=== PATIENT | male | born 1985 | race Caucasian/White ===

== ENCOUNTER 2016-11-10 20:55 | Emergency (ER) | payer SELFPAY ==
[~2016-11-10] VITALS: Ht 172.7 cm; Wt 56.0 kg
[2016-11-10 21:05] VITALS: BP 128/79; PULSE 70; RESP 16; TEMP 97.9; O2SAT 99
[2016-11-10] MEDS ORDERED: IBUP800T23 PO (21:14)
--- NOTE | 2016-11-10 21:15 | PD ---
HPI . Right wrist injury Chief Complaint: Injury Time Seen by Provider: 21:08 Travel History International Travel<30 days: No Contact w/Intl Traveler<30days: No History of Present Illness HPI Patient presents with chief complaint of wrist injury. He states that he twisted it wrong yesterday while helping a friend move. He presents complaining with diffuse wrist pain which is exacerbated by movement. He has not taken any medication prior to arrival such as aspirin, Tylenol, Advil or Aleve. Patient reports persistent pain. [facility] Past Medical History Diminished Hearing: No Kidney Stones: Yes Immunizations Current: Yes Seizures: Yes Past Surgical History Appendectomy: Yes Other Surgery: Yes (EAR SURGERY - CARTILAGE BUILT UP) Social History Alcohol Use: Yes (RARE) Tobacco Use: Yes (1/2 -1 ppd cig) Substance Use: Yes (MARIJUANNA) Allergies-Medications (Allergen,Severity, Reaction): Coded Allergies: No Known Allergies (Verified , 11/24/15) Reported Meds & Prescriptions Reported Meds & Active Scripts Active Ibuprofen 800 Mg Tab 800 Mg PO Q8H PRN Review of Systems Except as stated in HPI: all other systems reviewed are Neg Musculoskeletal: Positive: Arthralgias, Limited ROM Physical Exam Narrative GENERAL: Awake and alert and in no acute distress. SKIN: Warm and dry. HEAD: Atraumatic. Normocephalic. EYES: Pupils equal and round. NECK: Trachea midline. CARDIOVASCULAR: Regular rate and rhythm. RESPIRATORY: No accessory muscle use. MUSCULOSKELETAL: There is no swelling or deformity of the right wrist. Limited range of motion secondary to pain. Diffusely tender. Distally neurovascularly intact. NEUROLOGICAL: Awake and alert. No obvious cranial nerve deficits. Motor grossly within normal limits. Normal speech. PSYCHIATRIC: Appropriate mood and affect; insight and judgment normal. Data Data Last Documented VS Vital Signs Date Time Temp Pulse Resp B/P Pulse Ox O2 Delivery O2 Flow Rate FiO2 11/10/16 21:05 97.9 70 16 128/79 99 Orders Wrist, Complete ([id number]) (11/10/16 21:10) [facility] Medical Decision Making Medical Screen Exam Complete: Yes Emergency Medical Condition: Yes Differential Diagnosis Differential diagnosis of extremity trauma includes but is not limited to fracture, sprain or strain, dislocation, contusion Narrative Course Patient presents with chief complaint of a right wrist injury. He has no physical evidence of fracture or dislocation. X-ray is pending. R wrist X-ray: Three view examination of the right wrist demonstrates no soft tissue swelling, dislocation, or fracture. The carpal bones are in normal alignment. The joint spaces are maintained. Bony mineralization is normal. The x-ray was independently viewed by me. Diagnosis Primary Impression: Strain of right wrist Qualified Code: S66.911A - Strain of right wrist, initial encounter Patient Instructions: General Instructions, Muscle Strain (DC) Departure Forms: Tests/Procedures, Work Release Enter return to work date: Nov 11, 2016 Special Instructions: limited use of right wrist for 1 week Med/Other Pt SpecificInfo: Prescription(s) given Scripts Ibuprofen 800 Mg [id number] Mg PO Q8H PRN (Pain/Inflammation) #60 TAB Ref 0 Prov:Danyelle Gutiérrez MD 11/10/16 Disposition: 01 DISCHARGE HOME Condition: Stable Danyelle Gutiérrez MD Nov 10, 2016 21:15
--- NOTE | 2016-11-10 21:45 | RADRPT ---
EXAM DATE/TIME: 11/10/2016 21:28 [facility] COMPARISON: No previous studies available for comparison. INDICATIONS : Right wrist pain. Right wrist twisted yesterday while carrying boxes. MEDICAL HISTORY : None. SURGICAL HISTORY : None. ENCOUNTER: Initial ACUITY: 2 days PAIN SCORE: 8/10 LOCATION: Right wrist. FINDINGS: Three view examination of the right wrist demonstrates no soft tissue swelling, dislocation, or fract ure. The carpal bones are in normal alignment. The joint spaces are maintained. Bony mineralizatio n is normal. CONCLUSION: No acute fracture. Haseeb Barr MD on November 10, 2016 at 21:43 Board Certified Radiologist. This report was verified electronically.
== END 2016-11-10 21:58 | disposition home or self-care (01) ==
LOC: PHEFT 20:55
DX: S66.911A Strain of unspecified muscle, fascia and tendon at wrist and hand level, right hand, initial encounter (principal); F17.200 Nicotine dependence, unspecified, uncomplicated; Z87.442 Personal history of urinary calculi; Z86.69 Personal history of other diseases of the nervous system and sense organs; X50.1XXA Overexertion from prolonged static or awkward postures, initial encounter
CPT/HCPCS: 73110; 99283

== ENCOUNTER 2017-01-14 06:02 | Emergency (ER) | payer SELFPAY ==
[~2017-01-14] VITALS: Ht 172.7 cm; Wt 60.0 kg
[~2017-01-14 06:02] MED LIST: IBUP800T23 PO
[2017-01-14 06:05] VITALS: BP 142/109; PULSE 92; RESP 16; TEMP 98.3; O2SAT 97
--- NOTE | 2017-01-14 06:33 | PD ---
HPI Chief Complaint: Abdominal Pain Time Seen by Provider: 06:11 Travel History International Travel<30 days: No Contact w/Intl Traveler<30days: No Traveled to known affect area: No History of Present Illness HPI The patient is a 31 year old female who presents to the [facility] emergency department with a history of abdominal pain that began at 10PM. The pain is in the midepigastric area. The pain is sharp. It is constant. It is 9/ 10 in severity. He reports having N/V x7. He has had diarrhea x5. He denies any sick contacts, foreign travel, or recent antibiotic use. On review of systems, he denies having any known fevers, cough, congestion, neck pain, chest pain, shortness of breath, urinary frequency, or urinary urgency, or neurologic symptoms. The patient does however report that he's had dysuria over the last few months intermittently. He denies having any penile discharge, scrotal pain or swelling. [facility] Past Medical History Narrative Medical The patient's past medical history is significant for seizures, kidney stones. Diminished Hearing: No Kidney Stones: Yes Immunizations Current: Yes Seizures: Yes Past Surgical History Narrative Surgical The patient's past surgical history is significant for an appendectomy and ear surgery. Appendectomy: Yes Other Surgery: Yes (EAR SURGERY - CARTILAGE BUILT UP) Social History Alcohol Use: No Tobacco Use: Yes (2 -1 PPD) Substance Use: Yes (MARIJUANNA) Allergies-Medications (Allergen,Severity, Reaction): Coded Allergies: No Known Allergies (Verified , 01/14/17) Reported Meds & Prescriptions Reported Meds & Active Scripts Active No Active Prescriptions or Reported Medications Review of Systems Except as stated in HPI: all other systems reviewed are Neg General / Constitutional: No: Fever Eyes: No: Visual changes HENT: No: Headaches Cardiovascular: No: Chest Pain or Discomfort Respiratory: No: Shortness of Breath Gastrointestinal: Positive: Nausea, Vomiting, Diarrhea, Abdominal Pain, Changes in Bowel Habits, No: Hematemesis, Hematochezia, Indigestion, Loss of Appetite Genitourinary: No: Dysuria Musculoskeletal: No: Pain Skin: No Rash Neurologic: No: Weakness Psychiatric: No: Depression Endocrine: No: Polydipsia Hematologic/Lymphatic: No: Easy Bruising Physical Exam Narrative General: The patient is a well-developed thin appearing male, uncomfortable appearing on examination, landing on his left side. Head and Neck exam: Head is normocephalic atraumatic. Eyes: EOMI, pupils are equal round and reactive to light. Nose: Midline septum with pink mucous membranes Mouth: Dentition unremarkable. Moist mucus membranes. Posterior oropharynx is not erythematous. No tonsillar hypertrophy. Uvula midline. Airway patent. Neck: No palpable lymphadenopathy. No nuchal rigidity. No thyromegaly. Cardiovascular: Regular rate and rhythm without murmurs, gallops, or rubs. Lungs: Clear to auscultation bilaterally. No wheezes, rhonchi, or rales. Abdomen: Soft, with midepigastric abdominal pain on palpation, no other tenderness on palpation of the other quadrants of the abdomen. No guarding, rebound, or rigidity. Normal bowel sounds are audible. No tenderness on palpation of McBurney's point. Negative Falk's sign. Extremities: No clubbing, cyanosis, or edema. 2+ pulses in all 4 extremities. No calf tenderness on palpation. Back: No spinous process tenderness to palpation. No costovertebral angle tenderness to palpation. Neurologic Exam: Grossly nonfocal Skin Exam: No rash noted. Intact skin that is warm and dry. Data Data Last Documented VS Vital Signs Date Time Temp Pulse Resp B/P (MAP) Pulse Ox O2 Delivery O2 Flow Rate FiO2 01/14/17 06:05 98.3 92 16 142/109 (120) 97 Room Air Orders Orders Complete Blood Count With Diff (01/14/17 06:33) Comprehensive Metabolic Panel (01/14/17 06:33) Lipase (01/14/17 06:33) Urinalysis - C+S If Indicated (01/14/17 06:33) Magnesium (Mg) (01/14/17 06:33) Chest, Single Ap (01/14/17 06:33) Iv Access Insert/Monitor (01/14/17 06:33) Ecg Monitoring (01/14/17 06:33) Oximetry (01/14/17 06:33) Drug Screen, Random Urine (01/14/17 06:33) Sodium Chlor 0.9% 1000 Ml Inj (Ns 1000 M (01/14/17 06:45) Ondansetron Inj (Zofran Inj) (01/14/17 06:45) Labs Laboratory Tests Test 01/14/17 06:50 White Blood Count 10.3 TH/MM3 Red Blood Count 5.25 MIL/MM3 Hemoglobin 16.8 GM/DL Hematocrit 48.6 % Mean Corpuscular Volume 92.5 FL Mean Corpuscular Hemoglobin 32.1 PG Mean Corpuscular Hemoglobin Concent 34.7 % Red Cell Distribution Width 12.9 % Platelet Count 276 TH/MM3 Mean Platelet Volume 8.2 FL Neutrophils (%) (Auto) 80.5 % Lymphocytes (%) (Auto) 14.3 % Monocytes (%) (Auto) 4.3 % Eosinophils (%) (Auto) 0.1 % Basophils (%) (Auto) 0.8 % Neutrophils # (Auto) 8.3 TH/MM3 Lymphocytes # (Auto) 1.5 TH/MM3 Monocytes # (Auto) 0.4 TH/MM3 Eosinophils # (Auto) 0.0 TH/MM3 Basophils # (Auto) 0.1 TH/MM3 CBC Comment DIFF FINAL Differential Comment MDM Medical Decision Making Medical Screen Exam Complete: Yes Emergency Medical Condition: Yes Medical Record Reviewed: Yes Differential Diagnosis Viral versus bacterial gastroenteritis, versus cyclic vomiting syndrome, versus gastroparesis, versus colitis, versus pancreatitis. Narrative Course During the course of the patients emergency department visit, the patients history, examination, and differential diagnosis were reviewed with the patient. The patient had IV access obtained and blood work sent for analysis. The patient was placed on a library monitor with oximetry and blood pressure monitoring. The patient was initially provided normal saline 1 L IV fluid bolus, Zofran 4 mg IV. The patients laboratory studies were reviewed and remarkable for a white count 10.3, hemoglobin 16.8, platelets 276 with 8.5 neutrophils. Radiology studies were reviewed and remarkable for a chest x-ray that shows stable hyperinflation. The patient's chemistry panel and lipase are pending. The patient's case will be checked out to the oncoming emergency physician to disposition the patient based on the conclusion of his workup and improvement in his symptoms Diagnosis Primary Impression: Nausea, vomiting, and diarrhea Scripts No Active Prescriptions or Reported Meds Caryn Joy MD Jan 14, 2017 06:33
[2017-01-14] MEDS ORDERED: ONDANSETRON HCL 4 MG/2 ML VIAL IV ONE (06:45)
[2017-01-14] MEDS ORDERED: SODIUM CHLOR 0.9% 1000 ML INJ 1,000 ML IV ONE (06:45)
[2017-01-14 07:08] LABS: AUTOMATED NEUTROPHIL # 8.3 TH/MM3 (1.8-7.7); BASOPHIL # 0.1 TH/MM3 (0-0.2); BASOPHIL % 0.8 % (0.0-2.0); EOSINOPHIL % 0.1 % (0.0-4.0); HEMATOCRIT 48.6 % (39.0-51.0); HEMO FLAGS DIFF FINAL; LYMPH % 14.3 % (9.0-44.0); LYMPHOCYTE # 1.5 TH/MM3 (1.0-4.8); MEAN CELL VOLUME 92.5 FL (80.0-100.0); MEAN CORPUSCULAR HEMOGLOBIN 32.1 PG (27.0-34.0); MEAN CORPUSCULAR HGB CONC 34.7 % (32.0-36.0); MONO % 4.3 % (0.0-8.0); NEUT % 80.5 % (16.0-70.0); PLATELET COUNT 276 TH/MM3 (150-450); RED BLOOD COUNT 5.25 MIL/MM3 (4.50-5.90); RED CELL DISTRIBUTION WIDTH 12.9 % (11.6-17.2); WHITE BLOOD COUNT 10.3 TH/MM3 (4.0-11.0)
--- NOTE | 2017-01-14 07:14 | RADRPT ---
EXAM DATE/TIME: 01/14/2017 06:55 [facility] COMPARISON: CHEST SINGLE AP, October 13, 2014, 11:17. INDICATIONS : Nausea vomiting x2 days right upper abdomen pains. MEDICAL HISTORY : None. SURGICAL HISTORY : Appendectomy. ENCOUNTER: Initial ACUITY: 2 days PAIN SCORE: 6/10 LOCATION: Right chest FINDINGS: Hyperinflation. No free air beneath the diaphragm. Heart and mediastinal contours are normal, and the lungs are clear. Osseous structures are intact. CONCLUSION: Stable hyperinflation. Zay Duarte MD on January 14, 2017 at 7:12 Board Certified Radiologist. This report was verified electronically.
[2017-01-14 07:30] LABS: ALT (GPT) 39 U/L (12-78); ANION GAP 9 MEQ/L (5-15); AST (GOT) 26 U/L (15-37); BICARBONATE 24.8 MEQ/L (21.0-32.0); BLOOD UREA NITROGEN 19 MG/DL (7-18); CHLORIDE 106 MEQ/L (98-107); GLOMERULAR FILTRATION RATE 69 ML/MIN (>89); MAGNESIUM 1.9 MG/DL (1.5-2.5); POTASSIUM 3.8 MEQ/L (3.5-5.1); SODIUM (NA) 140 MEQ/L (136-145)
[2017-01-14 07:32] LABS: ALKALINE PHOSPHATASE 117 U/L (45-117); TOTAL BILIRUBIN ADULT 0.6 MG/DL (0.2-1.0)
--- NOTE | 2017-01-14 08:24 | PD ---
Data Data Last Documented VS Vital Signs Date Time Temp Pulse Resp B/P (MAP) Pulse Ox O2 Delivery O2 Flow Rate FiO2 01/14/17 10:02 01/14/17 06:05 98.3 92 16 97 Room Air Orders Orders Complete Blood Count With Diff (01/14/17 06:33) Comprehensive Metabolic Panel (01/14/17 06:33) Lipase (01/14/17 06:33) Magnesium (Mg) (01/14/17 06:33) Chest, Single Ap (01/14/17 06:33) Iv Access Insert/Monitor (01/14/17 06:33) Ecg Monitoring (01/14/17 06:33) Oximetry (01/14/17 06:33) Sodium Chlor 0.9% 1000 Ml Inj (Ns 1000 M (01/14/17 06:45) Ondansetron Inj (Zofran Inj) (01/14/17 06:45) Labs Laboratory Tests Test 01/14/17 06:50 White Blood Count 10.3 TH/MM3 Red Blood Count 5.25 MIL/MM3 Hemoglobin 16.8 GM/DL Hematocrit 48.6 % Mean Corpuscular Volume 92.5 FL Mean Corpuscular Hemoglobin 32.1 PG Mean Corpuscular Hemoglobin Concent 34.7 % Red Cell Distribution Width 12.9 % Platelet Count 276 TH/MM3 Mean Platelet Volume 8.2 FL Neutrophils (%) (Auto) 80.5 % Lymphocytes (%) (Auto) 14.3 % Monocytes (%) (Auto) 4.3 % Eosinophils (%) (Auto) 0.1 % Basophils (%) (Auto) 0.8 % Neutrophils # (Auto) 8.3 TH/MM3 Lymphocytes # (Auto) 1.5 TH/MM3 Monocytes # (Auto) 0.4 TH/MM3 Eosinophils # (Auto) 0.0 TH/MM3 Basophils # (Auto) 0.1 TH/MM3 CBC Comment DIFF FINAL Differential Comment Blood Urea Nitrogen 19 MG/DL Creatinine 1.21 MG/DL Random Glucose 158 MG/DL Total Protein 8.5 GM/DL Albumin 4.9 GM/DL Calcium Level 9.8 MG/DL Magnesium Level 1.9 MG/DL Alkaline Phosphatase 117 U/L Aspartate Amino Transf (AST/SGOT) 26 U/L Alanine Aminotransferase (ALT/SGPT) 39 U/L Total Bilirubin 0.6 MG/DL Sodium Level 140 MEQ/L Potassium Level 3.8 MEQ/L Chloride Level 106 MEQ/L Carbon Dioxide Level 24.8 MEQ/L Anion Gap 9 MEQ/L Estimat Glomerular Filtration Rate 69 ML/MIN Lipase 69 U/L [facility] Medical Record Reviewed: Yes Supervised Visit with LUIS ENRIQUE: No Narrative Course CBC & BMP Diagram 01/14/17 06:50 Total Protein 8.5 H, Albumin 4.9, Calcium Level 9.8, Magnesium Level 1.9, Alkaline Phosphatase 117, Aspartate Amino Transf (AST/SGOT) 26, Alanine Aminotransferase (ALT/SGPT) 39, Total Bilirubin 0.6 Lipase 69 EtOH < 3The patient is resting comfortably and feels better, is alert and in no distress. The patients results and examination findings were discussed. The repeat examination is unremarkable and benign. The history, exam, diagnostic testing, and current condition do not suggest any significant pathology to warrant further testing, continued ED treatment, admission, or surgical evaluation at this point. The vital signs have been stable. The patient does not have uncontrollable pain, intractable vomiting, or other significant symptoms. The patient's condition is stable and appropriate for discharge. The patient will pursue further outpatient evaluation with a primary care physician or other designated or consulting physician as indicated in the discharge instructions. The patient expressed understanding and was agreeable with this plan. Diagnosis Primary Impression: Nausea, vomiting, and diarrhea Scripts No Active Prescriptions or Reported Meds Disposition: 01 DISCHARGE HOME Condition: Stable Noman Avila MD Jan 14, 2017 08:24
== END 2017-01-14 10:02 | disposition home or self-care (01) ==
LOC: NEPC 06:02
DX: R11.2 Nausea with vomiting, unspecified (principal); R19.7 Diarrhea, unspecified; R10.13 Epigastric pain; F17.200 Nicotine dependence, unspecified, uncomplicated; Z86.69 Personal history of other diseases of the nervous system and sense organs; Z87.442 Personal history of urinary calculi
CPT/HCPCS: 71010; 80053; 83690; 83735; 85025; 96374; 99284; J2405; J7030

== ENCOUNTER 2017-08-20 13:54 | Emergency (ER) | payer SELFPAY ==
[~2017-08-20] VITALS: Ht 172.7 cm; Wt 60.0 kg
[2017-08-20 13:58] VITALS: BP 120/61; PULSE 93; RESP 56
[2017-08-20] MEDS ORDERED: SODIUM CHLOR 0.9% 1000 ML INJ 1,000 ML IV ONE ×2 (14:01→14:15)
--- NOTE | 2017-08-20 14:10 | PD ---
HPI Chief Complaint: Seizure Time Seen by Provider: 13:59 Travel History International Travel<30 days: No Contact w/Intl Traveler<30days: No History of Present Illness HPI Patient comes in to the emergency department via EMS after having a reported witnessed seizure while at work today. Patient was reportedly acting his normal self until his boss saw him laying on the ground with what appear to be seizure-like activity per EMS. When EMS arrived patient was walking across parking lot acting altered. In route patient became combative and had to be restrained by EMS. Patient is diaphoretic and appears somewhat postictal. Patient will answer questions but then falls back asleep easily. Patient is uncertain of his last tetanus shot. Denies any pain anywhere. Patient appears postictal thus limiting H&P. PFSH Past Medical History Diminished Hearing: No Kidney Stones: Yes Immunizations Current: Yes Seizures: Yes Past Surgical History Appendectomy: Yes Other Surgery: Yes (EAR SURGERY - CARTILAGE BUILT UP) Social History Alcohol Use: No Tobacco Use: Yes (2 -1 PPD) Substance Use: Yes (KARMAJUANNA) Allergies-Medications (Allergen,Severity, Reaction): Coded Allergies: No Known Allergies (Verified , 01/14/17) Reported Meds & Prescriptions Reported Meds & Active Scripts Active Keppra (Levetiracetam) 500 Mg Tab 500 Mg PO BID Review of Systems ROS Limitations: Clinical Condition Except as stated in HPI: all other systems reviewed are Neg Physical Exam Exam Limitations: Clinical Condition Narrative GENERAL: Well-developed, well nourished, in no acute distress, and non-ill appearing. SKIN: Focused skin assessment warm and moist. Multiple abrasions noted right elbow and right lateral eyebrow. No foreign body noted. HEAD: Atraumatic. Normocephalic. EYES: Pupils equal and round. EOMI. No scleral icterus. No injection or drainage. ENT: No nasal bleeding or discharge. Mucous membranes pink and moist. NECK: Trachea midline. No tenderness or crepitus or midline of the cervical spine. Supple. No nuclear rigidity. CARDIOVASCULAR: Regular rate and rhythm. No murmur appreciated. RESPIRATORY: No accessory muscle use. No respiratory distress. Clear to auscultation. Breath sounds equal bilaterally. MUSCULOSKELETAL: No obvious deformities. No clubbing. No cyanosis. No edema. Full range of motion. NEUROLOGICAL: Awake and alert. No obvious cranial nerve deficits. Motor grossly within normal limits. Abnormal speech. PSYCHIATRIC: Postictal. Data Data Last Documented VS Vital Signs Date Time Temp Pulse Resp B/P (MAP) Pulse Ox O2 Delivery O2 Flow Rate FiO2 08/20/17 14:59 91 20 133/81 (98) 98 Nasal Cannula 2.00 Orders Orders Complete Blood Count With Diff (08/20/17 14:01) Basic Metabolic Panel (Bmp) (08/20/17 14:01) Alcohol (Ethanol) (08/20/17 14:01) Drug Screen, Random Urine (08/20/17 14:01) Electrocardiogram (08/20/17 ) Blood Glucose (08/20/17 14:01) Ecg Monitoring (08/20/17 14:01) Iv Access Insert/Monitor (08/20/17 14:01) Oximetry (08/20/17 14:01) Cath For Specimen (08/20/17 14:01) Sodium Chlor 0.9% 1000 Ml Inj (Ns 1000 M (08/20/17 14:01) Sodium Chloride 0.9% Flush (Ns Flush) (08/20/17 14:15) Urinalysis - C+S If Indicated (08/20/17 14:01) Sodium Chlor 0.9% 1000 Ml Inj (Ns 1000 M (08/20/17 14:15) Tetanus/Diphtheria Tox Adult (Tetanus/Di (08/20/17 14:15) Ct Brain W/O Iv Contrast(Rout) (08/20/17 ) Ct Facial Bones W/O Iv Cont (08/20/17 ) Creatine Kinase (Cpk) (08/20/17 14:01) Ct Cerv Spine W/O Contrast (08/20/17 ) Lorazepam Inj (Ativan Inj) (08/20/17 14:15) Wound Care (08/20/17 16:00) Ed Discharge Order (08/20/17 16:45) Mandatory Outpatient Referral (08/20/17 16:45) Levetiracetam (Keppra) (08/20/17 16:45) Labs Laboratory Tests Test 08/20/17 14:01 08/20/17 14:05 08/20/17 15:45 Urine Color YELLOW Urine Turbidity CLEAR Urine pH 5.5 Urine Specific [place] 1.018 Urine Protein 100 mg/dL Urine Glucose (UA) NEG mg/dL Urine Ketones NEG mg/dL Urine Occult Blood SMALL Urine Nitrite NEG Urine Bilirubin NEG Urine Urobilinogen 0.2 MG/DL Urine Leukocyte Esterase NEG Urine WBC LESS THAN 1 /hpf Urine Hyaline Casts 5 /lpf Urine Mucus FEW /lpf Microscopic Urinalysis Comment CULT NOT INDICATED White Blood Count 10.7 TH/MM3 Red Blood Count 4.92 MIL/MM3 Hemoglobin 16.0 GM/DL Hematocrit 48.3 % Mean Corpuscular Volume 98.2 FL Mean Corpuscular Hemoglobin 32.6 PG Mean Corpuscular Hemoglobin Concent 33.2 % Red Cell Distribution Width 13.3 % Platelet Count 270 TH/MM3 Mean Platelet Volume 9.2 FL Neutrophils (%) (Auto) 49.8 % Lymphocytes (%) (Auto) 40.6 % Monocytes (%) (Auto) 7.0 % Eosinophils (%) (Auto) 1.3 % Basophils (%) (Auto) 1.3 % Neutrophils # (Auto) 5.3 TH/MM3 Lymphocytes # (Auto) 4.3 TH/MM3 Monocytes # (Auto) 0.7 TH/MM3 Eosinophils # (Auto) 0.1 TH/MM3 Basophils # (Auto) 0.1 TH/MM3 CBC Comment DIFF FINAL Differential Comment Blood Urea Nitrogen 18 MG/DL Creatinine 1.74 MG/DL Random Glucose 153 MG/DL Calcium Level 9.5 MG/DL Sodium Level 147 MEQ/L Potassium Level 3.7 MEQ/L Chloride Level 109 MEQ/L Carbon Dioxide Level 9.2 MEQ/L Anion Gap 29 MEQ/L Estimat Glomerular Filtration Rate 45 ML/MIN Total Creatine Kinase 162 U/L Ethyl Alcohol Level LESS THAN 3 MG/DL Urine Opiates Screen NEG Urine Barbiturates Screen NEG Urine Amphetamines Screen NEG Urine Benzodiazepines Screen NEG Urine Cocaine Screen NEG Urine Cannabinoids Screen POS MDM Medical Decision Making Medical Screen Exam Complete: Yes Emergency Medical Condition: Yes Interpretation(s) Last Impressions Maxillofacial CT 08/20/17 Signed Impressions: Service Date/Time: Sunday, August 20, 2017 14:20 - CONCLUSION: Negative for fracture. Minimal radiopaque foreign material seen at the bridge of the nose. Shahid Kaufman MD FACR Head CT 08/20/17 Signed Impressions: Service Date/Time: Sunday, August 20, 2017 14:20 - CONCLUSION: 1. No acute intracranial abnormality identified. Noman Kaufman MD Cervical Spine CT 08/20/17 0000 Signed Impressions: Service Date/Time: Sunday, August 20, 2017 14:20 - CONCLUSION: 1. No fracture is identified. However, there is a large left paracentral extruded disc at C5-C6 mildly narrowing spinal canal and causing severe left neural foraminal stenosis. 2. Moderate emphysematous changes are present at the visualized lung apices. Giovanni Fox MD Differential Diagnosis Seizure, metabolic disturbance, rhabdo, substance abuse, medical noncompliance, fracture, contusion, abrasion Narrative Course 1430 patient's fianc at bedside reports patient was on Keppra 500 mg twice daily but has not been on it for about a month. Reports patient does not have a primary care doctor or neurologist. Patient reports he is feeling much better states that he was working on a car when he started getting lightheaded and dizzy lasting he remembers. Patient reports only pain is around his eye that he describes as a soreness is worse to palpation. Not touching improves the pain. Denies any change in vision, neck pain, chest pain, shortness breath , or abdominal pain. The patient presented with seizure. The patient has a known seizure disorder. The patient looks great and has returned to baseline. The patient admits to not taking seizure medications as he has not had a prescription approximately a month. There is no evidence clinically to suggest meningitis, infection or metabolic etiology. The patient appears well hydrated and nontoxic. Clinical suspicion was discussed with patient. Patient was informed that they must take seizure medication as prescribed and not miss or skip doses. They were instructed to return as needed or if recurred prior to follow up with neurology. Patient agreed with plan and instructions. The patient was also informed that they may not drive or operated heavy machinery due to the fact that they may have a seizure and cause injury or to themselves or others. They may not drive or operate heavy machinery until cleared by a neurologist. There is no significant jaw pain or tenderness. There is no malocclusion noted subjectively or objectively. There is no bruising under the tongue. There is no significant swelling, tenderness, bruising or deformity of the face to suggest fractures of face or nose. There is no nasal discharge or bleeding and no septal hematoma. There are no visual problems or significant bruising under eyes or midface. There is no evidence to suggest entrapment and there is no facial nerve palsy. There is no flattening of the cheek or altered sensation underneath the eye. The facial bones are stable and nonmobile. The airway is intact. Findings were discussed with the patient. The patient was instructed on pain medication, ice packs and elevation of head. The patient agreed with plan of care and management. The patient suffered abrasions. The abrasions are very superficial and non- repairable. Patient was offered Dermabond for the facial abrasion but declined. There was no evidence to suggest foreign bodies. Visual and tactile exams were unremarkable. There was no evidence of neurovascular injury as well. The patients wound/s were cleaned and dressed. The patient was given signs and symptom warnings for infection, such as increasing pain, redness, swelling, associated heat, pus or fever. The patient was given instructions for timely follow up. The patient agreed with plan of care. Patient in no obvious distress upon re-evaluation. All pertinent laboratory/ Radiology result(s) discussed with patient/family including stenosis noted on cervical CT. Discussed patient with Dr. Delvalle, who saw and evaluated the patient and is in agreement plan of care disposition. Any questions/concerns in reference to patient diagnosis/condition discussed and clarified prior to patient's discharge. Reinforced sheer importance of close follow up with patient 's primary physician or primary care clinic and neurologist. Instructed patient to return to ED immediately, if symptoms return/worsen. Patient showed understanding of above instructions. Further instructions and recommendations were detailed in discharge paperwork. Patient ambulated without difficulty out of ED at discharge. Diagnosis Primary Impression: Seizure Additional Impressions: Facial contusion Qualified Codes: S00.83XA - Contusion of other part of head, initial encounter Abrasions of multiple sites Referrals: [facility] Patient Instructions: Abrasion (ED), Epilepsy (ED), Facial Contusion (ED), General Instructions Additional Instructions: Follow-up with your primary care physician and/or neurologist next week. Take all medication as prescribed. Do not drive, operate heavy machinery, swim, or climb ladders until cleared by neurologist. Sleep at an angle of approximately 30 or higher to decrease pain and swelling to your face. Apply ice to affected area 20 minutes prior as needed for pain and swelling. Keep wound dry and clean as possible using soap and water. Use Neosporin to promote healing. Return to the emergency department if symptoms get worse. Med/Other Pt SpecificInfo: Prescription(s) given Scripts Levetiracetam (Keppra) 500 Mg Tab 500 MG PO BID for Control Seizures, #60 TAB 0 Refills Prov: Brittany Delvalle DO 08/20/17 Disposition: 01 DISCHARGE HOME Condition: Stable Edward Griffin August 20, 2017 14:10
[2017-08-20] MEDS ORDERED: TETANUS/DIPHTHERIA TOXOID ADULT 0.5 ML VIAL IM ONE (14:15)
[2017-08-20] MEDS ORDERED: SODIUM CHLORIDE 0.9% FLUSH 10 ML FLUSH IVF PRN (14:15)
[2017-08-20] MEDS ORDERED: LORazepam 2 MG/ML VIAL IV PUSH ONE (14:15)
[2017-08-20 14:19] LABS: AUTOMATED NEUTROPHIL # 5.3 TH/MM3 (1.8-7.7); BASOPHIL # 0.1 TH/MM3 (0-0.2); BASOPHIL % 1.3 % (0.0-2.0); EOSINOPHIL # 0.1 TH/MM3 (0-0.4); EOSINOPHIL % 1.3 % (0.0-4.0); HEMATOCRIT 48.3 % (39.0-51.0); LYMPH % 40.6 % (9.0-44.0); LYMPHOCYTE # 4.3 TH/MM3 (1.0-4.8); MEAN CELL VOLUME 98.2 FL (80.0-100.0); MEAN CORPUSCULAR HEMOGLOBIN 32.6 PG (27.0-34.0); MEAN CORPUSCULAR HGB CONC 33.2 % (32.0-36.0); MEAN PLATELET VOLUME 9.2 FL (7.0-11.0); MONOCYTE # 0.7 TH/MM3 (0-0.9); NEUT % 49.8 % (16.0-70.0); PLATELET COUNT 270 TH/MM3 (150-450); RED BLOOD COUNT 4.92 MIL/MM3 (4.50-5.90); RED CELL DISTRIBUTION WIDTH 13.3 % (11.6-17.2); WHITE BLOOD COUNT 10.7 TH/MM3 (4.0-11.0)
[2017-08-20 14:20] VITALS: BP 120/61; PULSE 96; RESP 45; O2SAT 97
[2017-08-20 14:33] LABS: BICARBONATE 9.2 MEQ/L (21.0-32.0); BLOOD UREA NITROGEN 18 MG/DL (7-18); CALCIUM 9.5 MG/DL (8.5-10.1); CHLORIDE 109 MEQ/L (98-107); CREATININE 1.74 MG/DL (0.60-1.30); GLOMERULAR FILTRATION RATE 45 ML/MIN (>89); GLUCOSE,RANDOM 153 MG/DL (74-106); SODIUM (NA) 147 MEQ/L (136-145)
[2017-08-20 14:53] VITALS: RESP 25; O2SAT 97
--- NOTE | 2017-08-20 14:55 | RADRPT ---
EXAM DATE/TIME: 08/20/2017 14:20 [facility] COMPARISON: CT BRAIN W/O CONTRAST, May 14, 2015, 11:41. INDICATIONS : Found AMS . RADIATION DOSE: 54.36 CTDIvol (mGy) ; Combined studies MEDICAL HISTORY : Seizures. SURGICAL HISTORY : None. ENCOUNTER: Initial ACUITY: 1 day PAIN SCALE: 2/10 LOCATION: Bilateral cranial TECHNIQUE: Multiple contiguous axial images were obtained of the head. Using automated exposure control and adj ustment of the mA and/or kV according to patient size, radiation dose was kept as low as reasonably a chievable to obtain optimal diagnostic quality images. DICOM format image data is available electro nically for review and comparison. FINDINGS: CEREBRUM: The ventricles are normal for age. No evidence of midline shift, mass lesion, hemorrhage or acute in farction. No extra-axial fluid collections are seen. POSTERIOR FOSSA: The cerebellum and brainstem are intact. The 4th ventricle is midline. The cerebellopontine angle i s unremarkable. EXTRACRANIAL: The visualized portion of the orbits is intact. SKULL: The calvaria is intact. No evidence of skull fracture. CONCLUSION: 1. No acute intracranial abnormality identified. Noman Kaufman MD on August 20, 2017 at 14:51 Board Certified Radiologist. This report was verified electronically.
[2017-08-20 14:59] VITALS: BP 133/81; PULSE 91; RESP 20; O2SAT 98
--- NOTE | 2017-08-20 15:15 | RADRPT ---
EXAM DATE/TIME: 08/20/2017 14:20 [facility] COMPARISON: No previous studies available for comparison. INDICATIONS : Found AMS. RADIATION DOSE: 62.27 CTDIvol (mGy) ; Combined Studies MEDICAL HISTORY : Seizures. SURGICAL HISTORY : Non-responsive. ENCOUNTER: Initial ACUITY: 1 day PAIN SCORE: Non-responsive LOCATION: Bilateral facial TECHNIQUE: Volumetric scanning of the facial bones was performed. Using automated exposure control and adjustme nt of the mA and/or kV according to patient size, radiation dose was kept as low as reasonably achiev able to obtain optimal diagnostic quality images. DICOM format image data is available electronicFipeo y for review and comparison. FINDINGS: ORBITS: The orbital and infraorbital osseous structures are intact. The retroconal structures have a normal configuration. No radiopaque foreign bodies are seen. NASAL BONE: The nasal bone and maxillary spine are intact ZYGOMATIC ARCHES: Symmetric without evidence of fracture. SINUSES: The maxillary, ethmoid and frontal sinuses are intact. No air-fluid levels seen. NASAL CAVITY: The nasal septum is intact and midline. The lacrimal ducts are intact. SOFT TISSUES: No radiopaque foreign bodies seen. No soft-tissue swelling is seen. INTRACRANIAL: No intracranial air seen. CRIBIFORM PLATE: Grossly intact. CONCLUSION: Negative for fracture. Minimal radiopaque foreign material seen at the bridge of the nose. Shahid Kaufman MD FACR on August 20, 2017 at 15:12 Board Certified Radiologist. This report was verified electronically.
--- NOTE | 2017-08-20 15:16 | RADRPT ---
EXAM DATE/TIME: 08/20/2017 14:20 [facility] COMPARISON: No previous studies available for comparison. INDICATIONS : Found AMS today. RADIATION DOSE: 62.27 CTDIvol (mGy) ; Combined studies MEDICAL HISTORY : Seizures. SURGICAL HISTORY : None. ENCOUNTER: Initial ACUITY: 1 day PAIN SCALE: Non-responsive LOCATION: Bilateral facial TECHNIQUE: Volumetric scanning of the cervical spine was performed. Multiplanar reconstructions in the sagittal, coronal and oblique axial planes were performed. Using automated exposure control and adjustment o f the mA and/or kV according to patient size, radiation dose was kept as low as reasonably achievable to obtain optimal diagnostic quality images. DICOM format image data is available electronically f or review and comparison. FINDINGS: VERTEBRAE: Normal vertebral body height. No fracture is identified. ALIGNMENT: There is no intra-listhesis or retrolisthesis. The craniocervical junction and C1-C2 level demonstrate no abnormality. C2-C3: No disc herniation, canal stenosis, or neural foraminal stenosis. C3-C4: No disc herniation, canal stenosis, or neural foraminal stenosis. C4-C5: No disc herniation, canal stenosis, or neural foraminal stenosis. C5-C6: There is a large central left paracentral extruded disc which has mass effect on the spinal cord and at least mildly narrows the canal and causes severe left neural foraminal stenosis. C6-C7: No disc herniation, canal stenosis, or neural foraminal stenosis. C7-T1: No disc herniation, canal stenosis, or neural foraminal stenosis. There are emphysematous changes at the lung apices. CONCLUSION: 1. No fracture is identified. However, there is a large left paracentral extruded disc at C5-C6 mildl y narrowing spinal canal and causing severe left neural foraminal stenosis. 2. Moderate emphysematous changes are present at the visualized lung apices. Giovanni Fox MD on August 20, 2017 at 15:09 Board Certified Radiologist. This report was verified electronically.
--- NOTE | 2017-08-20 15:51 | PD ---
Physical Exam Date Seen by Provider: August 20, 2017 Data Data Last Documented VS Vital Signs Date Time Temp Pulse Resp B/P (MAP) Pulse Ox O2 Delivery O2 Flow Rate FiO2 08/20/17 14:59 91 20 133/81 (98) 98 Nasal Cannula 2.00 Orders Orders Complete Blood Count With Diff (08/20/17 14:01) Basic Metabolic Panel (Bmp) (08/20/17 14:01) Alcohol (Ethanol) (08/20/17 14:01) Drug Screen, Random Urine (08/20/17 14:01) Electrocardiogram (08/20/17 ) Blood Glucose (08/20/17 14:01) Ecg Monitoring (08/20/17 14:01) Iv Access Insert/Monitor (08/20/17 14:01) Oximetry (08/20/17 14:01) Cath For Specimen (08/20/17 14:01) Sodium Chlor 0.9% 1000 Ml Inj (Ns 1000 M (08/20/17 14:01) Sodium Chloride 0.9% Flush (Ns Flush) (08/20/17 14:15) Urinalysis - C+S If Indicated (08/20/17 14:01) Sodium Chlor 0.9% 1000 Ml Inj (Ns 1000 M (08/20/17 14:15) Tetanus/Diphtheria Tox Adult (Tetanus/Di (08/20/17 14:15) Ct Brain W/O Iv Contrast(Rout) (08/20/17 ) Ct Facial Bones W/O Iv Cont (08/20/17 ) Creatine Kinase (Cpk) (08/20/17 14:01) Ct Cerv Spine W/O Contrast (08/20/17 ) Lorazepam Inj (Ativan Inj) (08/20/17 14:15) Labs Laboratory Tests Test 08/20/17 14:05 White Blood Count 10.7 TH/MM3 Red Blood Count 4.92 MIL/MM3 Hemoglobin 16.0 GM/DL Hematocrit 48.3 % Mean Corpuscular Volume 98.2 FL Mean Corpuscular Hemoglobin 32.6 PG Mean Corpuscular Hemoglobin Concent 33.2 % Red Cell Distribution Width 13.3 % Platelet Count 270 TH/MM3 Mean Platelet Volume 9.2 FL Neutrophils (%) (Auto) 49.8 % Lymphocytes (%) (Auto) 40.6 % Monocytes (%) (Auto) 7.0 % Eosinophils (%) (Auto) 1.3 % Basophils (%) (Auto) 1.3 % Neutrophils # (Auto) 5.3 TH/MM3 Lymphocytes # (Auto) 4.3 TH/MM3 Monocytes # (Auto) 0.7 TH/MM3 Eosinophils # (Auto) 0.1 TH/MM3 Basophils # (Auto) 0.1 TH/MM3 CBC Comment DIFF FINAL Differential Comment Blood Urea Nitrogen 18 MG/DL Creatinine 1.74 MG/DL Random Glucose 153 MG/DL Calcium Level 9.5 MG/DL Sodium Level 147 MEQ/L Potassium Level 3.7 MEQ/L Chloride Level 109 MEQ/L Carbon Dioxide Level 9.2 MEQ/L Anion Gap 29 MEQ/L Estimat Glomerular Filtration Rate 45 ML/MIN Total Creatine Kinase 162 U/L Ethyl Alcohol Level LESS THAN 3 MG/DL MDM Medical Record Reviewed: Yes Supervised Visit with LUIS ENRIQUE: Yes Narrative Course I, Dr. Delvalle, have reviewed the advance practice practitioner's documentation and am in agreement, met with the patient face to face, made the diagnosis, and the medical decision making was done by me. *My assessment and Findings: Seizure disorder - patient with no seizures in the ER, will restart Keppra and put in for mandatory neurology referral Scripts No Active Prescriptions or Reported Meds Brittany Delvalle DO August 20, 2017 15:51
[2017-08-20 16:27] LABS: BILIRUBIN, URINE NEG (NEG); BLOOD, URINE SMALL (NEG); GLUCOSE,URINE NEG (NEG); KETONE, URINE NEG (NEG); NITRITE,URINE NEG (NEG); PH, URINE 5.5 (5.0-8.5); URINE COLOR YELLOW (YELLW/STRAW); URINE LEUKOCYTE ESTERASE NEG (NEG)
[2017-08-20 16:37] LABS: HYALINE CAST, URINE 5 /lpf (RARE); MUCUS URINE FEW /lpf (OCC)
[2017-08-20] MEDS ORDERED: levETIRAcetam 500 MG TAB PO ONE (16:45)
[2017-08-20] MEDS ORDERED: LEVE500 PO (16:46)
--- NOTE | 2017-08-21 14:25 | EKG ---
Date Performed: 08/20/2017 Time Performed: 14:11:26 PTAGE: 32 years EKG: Sinus rhythm WITH FIRST DEGREE AV BLOCK POSSIBLE RIGHT ATRIAL ENLARGEMENT POSSIBLE RIGHT VENTRICULAR CONDUCTION D ELAY When compared to previous tracing, sinus rate is faster. ABNORMAL ECG PREVIOUS TRACING : 12/26/2015 15.39 DOCTOR: Rashad Jasso Interpretating Date/Time 08/21/2017 14:23:58
== END 2017-08-20 18:00 | disposition home or self-care (01) ==
LOC: NEPE 13:54
DX: G40.909 Epilepsy, unspecified, not intractable, without status epilepticus (principal); S00.83XA Contusion of other part of head, initial encounter; S50.311A Abrasion of right elbow, initial encounter; S00.211A Abrasion of right eyelid and periocular area, initial encounter; F12.90 Cannabis use, unspecified, uncomplicated; I44.0 Atrioventricular block, first degree; W18.30XA Fall on same level, unspecified, initial encounter; Y99.0 Civilian activity done for income or pay; Z23 Encounter for immunization
CPT/HCPCS: 70450; 70486; 72125; 80048; 80307; 81001; 82550; 85025; 90471; 90714; 93005; 96360; 96361; 99285; J7030